=== PATIENT | female | born 1930 | race Caucasian/White ===

== ENCOUNTER 2018-11-05 08:29 | Day surgery (SDC) | payer BC, OTHER ==
[2018-11-05] VITALS (9 sets, daily range): BP systolic 123–150; BP diastolic 60–76; PULSE 60–85; RESP 12–28; Ht 157.5 cm; Wt 65.0 kg
[~2018-11-05] VITALS: Ht 157.5 cm; Wt 65.0 kg
[~2018-11-05 08:29] MED LIST: CYCLOPENTOLATE 1% 2 ML OPH RIGHT EYE SCH; LACTATED RINGER'S 1,000 ML (ENTER RATE) IV SCH; LIDOCAINE 1% (MPF) 5 ML VIAL INJ ONE; MOXIFLOXACIN 0.5% 3 ML OPH RIGHT EYE SCH; PHENYLephrine 2.5% 15 ML OPH RIGHT EYE SCH; TETRACAINE 0.5% 4 ML OPH RIGHT EYE ONE; TIMOLOL 0.5% 5 ML OPH RIGHT EYE ONE; TOBRAMYCIN/DEXAMETH 3.5 GM OPH OINT RIGHT EYE ONE; TROPICAMIDE 1% 15 ML OPH RIGHT EYE SCH
[2018-11-05] MEDS ORDERED: MIDAZOLAM 1 MG/ML 2 ML INJ ONE (09:48)
[2018-11-05] MEDS ORDERED: EPINEPHrine 1 MG INJ ONE (09:49)
[2018-11-05] MEDS ORDERED: TOBRAMYCIN/DEXAMETH 3.5 GM OPH OINT ONE (09:49)
[2018-11-05] MEDS ORDERED: TIMOLOL MALEATE/PF 0.5% OCCUDOSE (0.3 ML) ONE (09:49)
[2018-11-05] MEDS ORDERED: LIDOCAINE 1% (MPF) 5 ML VIAL ONE (09:49)
[2018-11-05] MEDS ORDERED: TIMOLOL 0.5% 5 ML OPH ONE (09:49)
[2018-11-05] MEDS ORDERED: TETRACAINE 0.5% 4 ML OPH ONE (09:49)
[2018-11-05] MEDS ORDERED: TETRACAINE 0.5% 4 ML OPH RIGHT EYE ONE (10:00)
[2018-11-05] MEDS ORDERED: LIDOCAINE 1% (MPF) 5 ML VIAL INJ ONE (10:00)
[2018-11-05] MEDS ORDERED: hydrALAzine 20 MG INJ IV PRN (10:00)
[2018-11-05] MEDS ORDERED: FENTAnyl 50 MCG/ML VIAL ONE ×2 (10:21→11:23)
[2018-11-05] MEDS ORDERED: TOBRAMYCIN/DEXAMETH 3.5 GM OPH OINT RIGHT EYE ONE (10:35)
[2018-11-05] MEDS ORDERED: TIMOLOL 0.5% 5 ML OPH RIGHT EYE ONE (10:35)
[2018-11-05] MEDS ORDERED: FENTAnyl 50 MCG/ML VIAL IV PRN ×2 (11:30)
[2018-11-05] MEDS ORDERED: HYDROmorphONE 1 MG/5 ML IV SYRINGE IV PRN ×2 (11:30)
== END 2018-11-05 12:25 | disposition home or self-care (01) ==
LOC: SDS 08:29
PROVIDERS: ATTEND Ophthalmology
DX: H25.11 Age-related nuclear cataract, right eye (principal); I10 Essential (primary) hypertension; E03.9 Hypothyroidism, unspecified; Z95.810 Presence of automatic (implantable) cardiac defibrillator; Z86.73 Personal history of transient ischemic attack (TIA), and cerebral infarction without residual deficits
CPT/HCPCS: J0171; J2250; J3010; V2632